=== PATIENT | female | born 1970 | race Caucasian/White ===

== ENCOUNTER 2016-10-28 17:40 | Emergency (ER) | payer SELFPAY ==
--- NOTE | 2016-10-29 01:41 | ED NURSING NOTES ---
Clinical Report - Nurses [facility] [address] [place] [address] 10/28/2016 17:41 Patient: CARMEN AMES TRIAGE Triage time 17:50. Chief Complaint: DEPRESSION, SUICIDAL THOUGHTS, ANXIETY and BIZARRE BEHAVIOR and AGITATED and AGGRESSIVE BEHAVIOR. --17:52 Emily Norris R.N. 18:30 10/28/16. BP: 131/77. HR: 94. RR: 20. O2 saturation: 98%. Temp: 97.8 F. Pain level now: 0. --18:31 Emily Norris R.N. Weight: 70.3 kg estimated. Height/Length: 67 inches Estimated. BMI: 24.3. --18:40 Emily Norris R.N. Medications Ibuprofen Oral, as needed. --17:51 Emily Norris R.N. Allergies PCN. Definite Moderate (Convulsions) --17:51 Emily Norris R.N. History Arrived in police custody. --17:52 Emily Norris R.N. ( Pt brought in in 4 point locking restraints which were resumed in the ED on arrival.). --17:57 Emily Norris R.N. SELF HARM ASSESSMENT: A self harm assessment was performed. The patient answered "yes" to the question "Have you recently felt down, depressed, or hopeless?", "Do you have thoughts of harming or killing yourself?" and "Have you ever tried to hurt yourself before today?" and "no" to the question "Do you have any dangerous items in your possession?". Unable to assess the patient in regard to the question "Have you noticed less interest or pleasure in doing things?", "Are you here because you tried to hurt yourself?" and "Have you recently had thoughts about harming or killing others?". The patient reports their behavior and spouse reported the patient's behavior. --18:41 Emily Norris R.N. PROBLEMS: Alcohol Intoxication. Mental Illness. Pelvic Pain. Ovarian Cyst. Enteritis. Abdominal Pain. Diarrhea. Endometriosis. Rt groin hernia. Hernia of abdominal wall. --17:52 Emily Norris R.N. ADDITIONAL SURGERIES: Cholecystectomy. Uterine ablation. --17:52 Emily Norris R.N. Hysterectomy. --18:40 Emily Norris R.N. PHYSICAL ASSESSMENT 18:32 10/28/16. GENERAL / NEURO / PSYCH: Good eye contact. She describes suicidal thoughts. Patient appears agitated. Patient smells of alcohol. --18:32 Emily Norris R.N. NURSING PROGRESS NOTES 18:07 10/28/16. Reassurance given. Suicide precautions initiated. Patient identifiers checked. Bed placed in lowest position. Patient ready for evaluation. ( NATURALIZATION EXAMINER already has seen pt for initial assessment). --18:07 Emily Norris R.N. 18:30. Patient ID band checked for patient name and birthdate. Catheterized urine collected with return of yellow-colored clear urine; sample sent to lab for urinalysis, culture, drug screen and HCG. Specimen labeled in the presence of the patient. --19:04 Stefan Ireland R.N. 18:40. ( personnel and payroll technician assisted to draw blood samples, taken to lab by tech.). --19:04 Stefan Ireland R.N. ( Patient's right wrist restraint removed. Patient demonstrates that she is able to calm and follow direction. at the bedside.). --19:48 Aaron Pryor R.N. ( Ariana THAKUR put the pt on a bedpan and removed the pt off the bedpan. outside the door.). --19:59 Beltran Nesbitt R.N. 20:05 10/28/16. ( First contact with pt . Pt placed on bedpan 400cc urine out. UA sent to lab . dry chucks placed under pt). --20:05 Ariana Henriquez R.N. ( Pt was complaining that the right wrist restraint was too tight and was loosened.). --21:29 Beltran Nesbitt R.N. ( PATIENT FAMILY COMPLAINED OF RESTRAINT BEING TO TIGHT, I CHECKED, PATIENT HAD GOOD CMS, AND i WAS ABLE TO FIT A FINGER BETWEEN THE RESTRAINTS AND THE PATIENTS WRIST, I ADVISED FAMILY THAT THE RESTRAINTS WERE APPROPRIATE, ESPECIALLY SHE HAD SLIPPED A RESTRAINT PREVIOUSLY). --21:33 Husam Tovar, ER Siebel Solution Architect ( Pt was placed on a bedpan by Ariana THAKUR). --21:50 Beltran Nesbitt R.N. 21:50. ( placed on bedpan 450cc urine out). --21:53 Ariana Henriquez R.N. ( Pt is laying in bed. left to go home and asked to be called if something happened. Pt still has both lower restraints on and have been checked. Pt has wrist restraints off.). --22:47 Beltran Nesbitt R.N. ( Pt is laying in bed with eyes closed with leg restraints on. Pt has non labored breathing.). --00:11 Beltran Nesbitt R.N. ( Pt was feeling nauseated and the MD was informed. Pt is calm and alert in bed.). --00:56 Beltran Nesbitt R.N. ( MD is at bedside talking to the pt. Pt is calm and alert.). --01:38 Beltran Nesbitt R.N. ( The leg restraints were removed, per MD orders. Pt was given a phone to call her .). --01:44 Beltran Nesbitt R.N. 01:34 10/29/2016 Zofran ODT (Ondansetron) PO 4 mg given. Allergies verified and confirmed 5 rights. --01:59 Beltran Nesbitt R.N. 02:04 10/29/2016 Phenergan (Promethazine HCl) IM 12.5 mg given. Given in the right deltoid. Allergies verified, confirmed 5 rights and sedative warning given to the patient and patient's family. --02:04 Beltran Nesbitt R.N. DISPOSITION / DISCHARGE Condition at departure: improved. ( Pt did not want to get her vs taken at the time of D/C. Pt was awake and alert x 4. was at bedside. Pt was told to stay 10 mins due to the pt given a shot. Pt was calm, but got agitated that her could not get a MD note.). No learning barriers present. Discharge instructions provided and reviewed with the patient and spouse. Patient verbalized understanding. Written instructions provided in Syriac. The patient was discharged by the physician. She was discharged home and accompanied by spouse. She left the Emergency Department ambulatory and via private vehicle. Spouse driving. --02:07 Beltran Nesbitt R.N. Locked/Released at 10/29/2016 2:15 by Beltran Nesbitt R.N.
--- NOTE | 2016-10-29 01:41 | ED ORDER SUMMARY ---
..... Patient: CARMEN AMES OrderSheet [facility] VisitID: [id number] [place] [address] 45y, F Registration Date/Time: 10/28/2016 ORDER SHEET Weight: 70.3 kg (estimated) Allergies: PCN GENERAL ORDERS: CBC w Diff Urgent (17:55 10/28/2016 HBivens A.R.N.P.) (Ack 18:10 TBergley) (18:28 TBergley) BMP Urgent (17:55 10/28/2016 HBivens A.R.N.P.) (Ack 18:10 TBergley) (18:28 TBergley) UA-Culture if indicated Urgent (17:55 10/28/2016 HBivens A.R.N.P.) (Ack 18:10 TBergley) (18:28 TBergley) Urine Drug Screen Urgent (17:55 10/28/2016 HBivens A.R.N.P.) (Ack 18:10 TBergley) (18:28 TBergley) Ethyl Alcohol Urgent (17:55 10/28/2016 HBivens A.R.N.P.) (Ack 18:10 TBergley) (18:28 TBergley) Serum Qualitative Urgent (17:55 10/28/2016 HBivens A.R.N.P.) (Ack 18:10 TBergley) (18:28 TBergley) Salicylate Level Urgent (17:55 10/28/2016 HBivens A.R.N.P.) (Ack 18:10 TBergley) (18:28 TBergley) Acetaminophen Level Urgent (17:55 10/28/2016 HBivens A.R.N.P.) (Ack 18:10 TBergley) (18:28 TBergley) Urine Drug Screen Urgent (17:55 10/28/2016 HBivens A.R.N.P.) (Ack 18:10 TBergley) (18:28 TBergley) Ethyl Alcohol Urgent (21:32 10/28/2016 HBivens A.R.N.PSharmaine) (Ack 21:46 TBergley) (22:02 TBergley) MEDICATION ORDERS: Zofran ODT PO 4 mg (NOW) (01:39 10/29/2016 Rigoberto PARKER) (1:59 Alfredo R.N.) Phenergan IM 12.5 mg (HIGH ALERT MEDICATION, NOW) (01:40 10/29/2016 Rigoberto PARKER) (2:04 Alfredo Adames.N.) IV FLUIDS: ORDER SHEET NOTES: [Electronically signed by Beltran Nesbitt R.N. (02:15 10/29/2016)] [Electronically signed by Mary Ellen Ybarra MD (21:25 11/01/2016)] [Electronically locked/signed by Beltran Nesbitt R.N. (02:15 10/29/2016)]
--- NOTE | 2016-10-29 01:41 | ED ORDER SUMMARY ---
..... Patient: CARMEN AMES OrderSheet [facility] VisitID: [id number] [place] [address] 45y, F Registration Date/Time: 10/28/2016 ORDER SHEET Weight: 70.3 kg (estimated) Allergies: PCN GENERAL ORDERS: CBC w Diff Urgent (17:55 10/28/2016 HBivens A.R.N.P.) (Ack 18:10 TBergley) (18:28 TBergley) BMP Urgent (17:55 10/28/2016 HBivens A.R.N.P.) (Ack 18:10 TBergley) (18:28 TBergley) UA-Culture if indicated Urgent (17:55 10/28/2016 HBivens A.R.N.P.) (Ack 18:10 TBergley) (18:28 TBergley) Urine Drug Screen Urgent (17:55 10/28/2016 HBivens A.R.N.P.) (Ack 18:10 TBergley) (18:28 TBergley) Ethyl Alcohol Urgent (17:55 10/28/2016 HBivens A.R.N.P.) (Ack 18:10 TBergley) (18:28 TBergley) Serum Qualitative Urgent (17:55 10/28/2016 HBivens A.R.N.P.) (Ack 18:10 TBergley) (18:28 TBergley) Salicylate Level Urgent (17:55 10/28/2016 HBivens A.R.N.P.) (Ack 18:10 TBergley) (18:28 TBergley) Acetaminophen Level Urgent (17:55 10/28/2016 HBivens A.R.N.P.) (Ack 18:10 TBergley) (18:28 TBergley) Urine Drug Screen Urgent (17:55 10/28/2016 HBivens A.R.N.P.) (Ack 18:10 TBergley) (18:28 TBergley) Ethyl Alcohol Urgent (21:32 10/28/2016 HBivens A.R.N.PSharmaine) (Ack 21:46 TBergley) (22:02 TBergley) MEDICATION ORDERS: Zofran ODT PO 4 mg (NOW) (01:39 10/29/2016 Rigoberto PARKER) (1:59 Alfredo R.N.) Phenergan IM 12.5 mg (HIGH ALERT MEDICATION, NOW) (01:40 10/29/2016 Rigoberto PARKER) (2:04 Alfredo Adames.N.) IV FLUIDS: ORDER SHEET NOTES: [Electronically signed by Beltran Nesbitt R.N. (02:15 10/29/2016)] [Electronically signed by Mary Ellen Ybarra MD (21:25 11/01/2016)] [Electronically locked/signed by Beltran Nesbitt R.N. (02:15 10/29/2016)]
--- NOTE | 2016-10-29 01:41 | ED CLINICAL REPORT ---
Clinical Report - Physicians/Mid Levels Located Within [facility] [address] [place] [address] 10/28/2016 17:41 Patient: CARMEN AMES Time Seen: 19:46; initial patient contact, initial documentation, patient care assumed. Arrived- By ambulance. Police present. Not in custody. Historian- patient and EMS personnel. History limited by poor cooperation. HISTORY OF PRESENT ILLNESS Chief Complaint: ANXIOUS, DEPRESSED and SUICIDAL THOUGHTS, (Intoxicated) and AGITATED, ANGRY, AGGRESSIVE and VIOLENT BEHAVIOR. This started unknown. The patient has experienced situational problems related to spouse (spouse has brain tumor). Recent alcohol consumption (Pt was drinking heavily tonight, and stated, "I just want to get a gun and end it".). The patient has had anxiety. Has been depressed and angry, exhibited unusual behavior and had suicidal thoughts. The symptoms are described as severe. No injury is present. Similar symptoms previously: Diagnosis: depression, suicide attempt and situational problems. Recent medical care: Not recently seen/assessed. REVIEW OF SYSTEMS No headache, dizziness, weakness, chest pain or palpitations. No abdominal pain, vomiting, diarrhea, black stools or numbness. No fever, sore throat, cough, difficulty breathing or urinary frequency. No skin rash, enlarged lymph nodes, joint pain, weight loss or laceration. All systems otherwise negative, except as recorded above. PAST HISTORY See nurses notes. ( PROBLEMS: Alcohol Intoxication. Mental Illness. Pelvic Pain. Ovarian Cyst. Enteritis. Abdominal Pain. Diarrhea. Endometriosis. Rt groin hernia. Hernia of abdominal wall. --17:52 Emily Norris, R.N. ADDITIONAL SURGERIES: Cholecystectomy. Uterine ablation. --17:52 Emily Norris, R.N. Hysterectomy. --18:40 Emily Norris, R.N.). Problems: Alcohol Intoxication. Mental Illness. Ovarian Cyst. Enteritis. Diarrhea. LNMP - Last Normal Menstrual Period. Endometriosis. Rt groin hernia. Hernia of abdominal wall. Additional Surgeries: Cholecystectomy. Hysterectomy. Uterine ablation. Medications: Ibuprofen Oral, as needed. Allergies: PCN. Definite Moderate (Convulsions). SOCIAL HISTORY Light tobacco smoker. Occasional alcohol use. History of drug use unknown. Has social support. Has place to stay. FAMILY HISTORY Negative. ADDITIONAL NOTES The nursing notes have been reviewed with agreement regarding the chief complaint, HPI, ROS, PMH and patient medications and allergies. PHYSICAL EXAM Vital Signs: 10/28/2016 18:30 BP: 131/77. HR: 94. RR: 20. O2 saturation: 98%. Temp: 97.8 F. Pain level now: 0/10. Have been reviewed as normal and appear to be correct. Appearance: Alert. No acute distress. Appearance is normal. Patient is uncooperative. Anxious. (pt screaming, kicking, yelling 'fuck you bitch' multiple times at me and nurse, screaming she just didn't care anymore, wants to , give her a gun and she will do it, and screaming that we let her go, so she can go and do it and everyone would be better off if she was gone). Eyes: Pupils equal, round and reactive to light. Neck: Normal inspection. Neck supple. CVS: Normal heart rate and rhythm. Heart sounds normal. Respiratory: Breath sounds normal. Chest nontender. Abdomen: Soft and nontender. Back: No tenderness. Skin: Skin warm and dry. Normal skin color. Normal skin turgor. Extremities: Extremities exhibit normal ROM. No lower extremity edema. Psych / Neuro: Oriented X 3. Speech normal. Cognition normal. Thought process and content normal. She expresses suicidal thoughts and a specific plan. Insight and judgement not normal. She does not feel treatment is necessary. She seems unconcerned about hers current condition. Cranial nerves normal (as tested). No motor deficit. No sensory deficit. LABS, X-RAYS, AND EKG Laboratory Tests: UA-Culture if indicated: (JORGE LUIS: 10/28/2016 18:05) ( MsgRcvd 10/28/2016 19:18) Final results Test Result Flag Units (Reference) URINE COLOR STRAW URINE APPEARANCE CLEAR URINE GLUCOSE NEGATIVE (NEGATIVE) URINE BILIRUBIN NEGATIVE (NEGATIVE) URINE KETONE NEGATIVE (NEGATIVE) URINE SPECIFIC GRAVITY <= 1.005 L (1.010-1.030) URINE PH 5.5 (5.0-8.0) URINE PROTEIN NEGATIVE (NEGATIVE) URINE UROBILINOGEN 0.2 EU/dL (0.2-1.0) URINE NITRITE NEGATIVE (NEGATIVE) URINE BLOOD NEGATIVE (NEGATIVE) URINE LEUK ESTERASE NEGATIVE (NEGATIVE) URINE RBC NONE SEEN rbc/hpf (0-1) URINE WBC NONE SEEN wbc/hpf (0-1) URINE EPITHELIAL CELLS 0-1 EPI/hpf (0-5) URINE BACTERIA NONE SEEN (NONE SEEN) URINE COMMENT CULT NOT INDICATED URINE CULTURES ARE SET-UP BASED ON THE FOLLOWING CRITERIA:POSITIVE NITRITEPOSITIVE LEUKOCYTE ESTERASEGREATER THAN 10 WHITE BLOOD CELLSMODERATE (2+) OR GREATER BACTERIA Serum Qualitative: (JORGE LUIS: 10/28/2016 18:25) ( [facility] 10/28/2016 18:54) Final results Test Result Flag Units (Reference) , SERUM NEGATIVE CBC w Diff: (JORGE LUIS: 10/28/2016 18:25) ( [facility] 10/28/2016 18:50) Final results Test Result Flag Units (Reference) WHITE BLOOD COUNT 8.3 K/uL (4.5-11.5) RED BLOOD COUNT 4.87 M/uL (4.00-5.20) HEMOGLOBIN 14.7 gm/dL (12.0-16.0) HEMATOCRIT 45.3 % (36.0-46.0) MEAN CELL VOLUME 93 fL (80-100) MEAN CORPUSCULAR HGB 30 pg (26-34) MEAN CORPUSCULAR HGB CONC 33 g/dL (31-37) RED CELL DISTRIBUTION WIDTH 13.0 % (11.6-14.8) PLATELET COUNT 283 K/uL (150-400) NEUTROPHIL % 67.2 % (50-75) LYMPH % 23.9 L % (25-40) MONO % 7.9 % (3-14) EOSINOPHIL % 0.5 % (0-4) BASOPHIL % 0.5 % (0-2) Urine Drug Screen: (JORGE LUIS: 10/28/2016 18:05) ( [facility] 10/28/2016 18:42) Final results Test Result Flag Units (Reference) AMPHETAMINE/METHAMPHETAMINE NEGATIVE (NEGATIVE) BARBITURATE NEGATIVE (NEGATIVE) BENZODIAZEPINE NEGATIVE (NEGATIVE) CANNABINOID NEGATIVE (NEGATIVE) COCAINE NEGATIVE (NEGATIVE) ECSTASY NEGATIVE (NEGATIVE) METHADONE NEGATIVE (NEGATIVE) OPIATE NEGATIVE (NEGATIVE) The urine drug screen is a qualitative screening test fordrug overdose and abuse. All screen results should beconsidered as presumptive.Drugs screened for are as follows:BenzodiazepinesCocaineAmphetamines/MetamphetaminesTHC (Tetrahydrocannabinol)OpiatesBarbituratesEcstasyMethadonePositive results are unconfirmed. For confirmation, notifythe lab for the specimen to be sent to the reference lab.All confirmations must be performed by a differentmethodology.The ingestion of natural herbal and plant productscontaining Ephedra/Ephedra metabolites can produce in urineone or more substances capable of cross reacting withamphetamine/methamphetamine immunoassays. These testsprovide a preliminary result only. A more specificalternative chemical method must be used to obtain aconfirmed analytical result. Salicylate Level: (JORGE LUIS: 10/28/2016 18:25) ( MsgRcvd 10/28/2016 18:59) Final results Test Result Flag Units (Reference) SALICYLATE <2.8 L mg/dL (2.8-20) BMP: (JORGE LUIS: 10/28/2016 18:25) ( MsgRcvd 10/28/2016 18:59) Final results Test Result Flag Units (Reference) GLUCOSE 75 mg/dL (70-110) BUN 9 mg/dL (7-18) CREATININE 0.7 mg/dL (0.6-1.3) Estimated GFR >60 mL/min Estimated GFR- >60 mL/min Note: Persistent reduction over 3 months in eGFR<60 mL/min/1.73 m2 defines CKD. Patients with eGFR values>=60 mL/min/1.73 m2 may also have CKD if evidence ofpersistent proteinuria. Additional information may be foundat www.kidney.org. SODIUM 144 mmol/L (136-145) POTASSIUM 3.3 L mmol/L (3.5-5.1) CHLORIDE 109 H mmol/L (98-107) CARBON DIOXIDE 21 mmol/L (21-32) CALCIUM 9.0 mg/dL (8.5-10.1) ACETAMINOPHEN < 2.0 L ug/mL (10-30) ETHYL ALCOHOL 217 H mg/dL (3-10) . Pulse Oximetry: 10/28/2016 18:30 O2 saturation: 98%. (FIO2 - room air). Interpretation: normal. PROGRESS AND PROCEDURES Course of Care: 2200. pt asleep or either laying there resting quietly and peacefully 23:13 10/28/16. repeat etoh 159 Dr. Ybarra aware of pt and will be assuming care Tate note: Pt was observed in the ED until sober. She was occasionally agitated after I assumed care, but mostly calm, and when she did reach sobriety, she was very calm and cooperative. I did re-evaluate her, and she stated she was not suicidal, and did not remember making such statements. was willing to come and get the pt. Patient and spouse counseled in person regarding the patient's stable condition, test results, diagnosis and need for follow-up. Concerns were addressed. Old medical records reviewed. Differential Diagnosis: Other possible considerations: si, depression, self harm, bipolar, substance abuse. Above considerations are based on history, physical exam and laboratory data. Differential diagnosis was discussed with patient. Disposition: Discharged. Condition: stable and improved. CLINICAL IMPRESSION Suicidal ideation. 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 Alcohol intoxication with delirium. No alcohol intoxication with alcohol dependence. INSTRUCTIONS Warnings: GENERAL WARNINGS: Return or contact your physician immediately if your condition worsens or changes unexpectedly, if not improving as expected, or if other problems arise. Your Current Medications: CONTINUE TAKING THE FOLLOWING MEDICATIONS: Ibuprofen Oral : prn. Follow-up: Follow up with your doctor as needed. Understanding of the discharge instructions verbalized by patient. (Electronically signed by Mary Ellen Ybarra MD 11/01/2016 21:25) Salomón gregorio CARMEN AMES VisitID: [id number] Date: 10/28/2016 10/29/2016 8:57 at 1830, yesterday, error in charting done under Stefan Ireland's name, I actually cathed patient for a sterile urine sample, and then placed pt on bedpan, she voided, jina care given, and pajama pants repositioned for comfort. (Electronically signed by Emily Norris R.N. - 10/29/2016 8:57)
--- NOTE | 2016-11-01 21:25 | ED DISCHARGE INSTRUCTIONS ---
Patient: CARMEN AMES General Instructions [facility] VisitID: [id number] [address] [place] [address] 45y, F Registration Date/Time: 10/28/2016 Suicidal ideation. 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 Alcohol intoxication with delirium. No alcohol intoxication with alcohol dependence. INSTRUCTIONS Warnings: GENERAL WARNINGS: Return or contact your physician immediately if your condition worsens or changes unexpectedly, if not improving as expected, or if other problems arise. Your Current Medications: CONTINUE TAKING THE FOLLOWING MEDICATIONS: Ibuprofen Oral : prn. Follow-up: Follow up with your doctor as needed. Understanding of the discharge instructions verbalized by patient. (Electronically signed by Mary Ellen Ybarra MD 11/01/2016 21:25)
--- NOTE | 2016-11-01 21:25 | ED MAR SUMMARY ---
..... Medication Administration Record [facility] [address] [place] [address] Patient: CARMEN AMES Visit ID: [id number] 45y, F Weight: 70.3 kg Height/Length: 67 in BMI: 24.3 ALLERGIES: PCN Given 01:34 10/29/2016 Beltran Nesbitt R.N. Medication Administered: ZOFRAN ODT [PO] (ONDANSETRON), Dose: 4 mg PO. Medication Ordered: Zofran ODT PO 4 mg (NOW). Given 02:04 10/29/2016 Beltran Nesbitt R.N. Medication Administered: PHENERGAN [IM] (PROMETHAZINE HCL), Dose: 12.5 mg IM. Medication Ordered: Phenergan IM 12.5 mg (HIGH ALERT MEDICATION, NOW).
--- NOTE | 2016-11-01 21:25 | ED MAR SUMMARY ---
..... Medication Administration Record [facility] [address] [place] [address] Patient: CARMEN AMES Visit ID: [id number] 45y, F Weight: 70.3 kg Height/Length: 67 in BMI: 24.3 ALLERGIES: PCN Given 01:34 10/29/2016 Beltran Nesbitt R.N. Medication Administered: ZOFRAN ODT [PO] (ONDANSETRON), Dose: 4 mg PO. Medication Ordered: Zofran ODT PO 4 mg (NOW). Given 02:04 10/29/2016 Beltran Nesbitt R.N. Medication Administered: PHENERGAN [IM] (PROMETHAZINE HCL), Dose: 12.5 mg IM. Medication Ordered: Phenergan IM 12.5 mg (HIGH ALERT MEDICATION, NOW).
--- NOTE | 2016-11-01 21:25 | ED MED RECONCILIATION SUMMARY ---
Patient: CARMEN AMES Medication Reconciliation Report [facility] VisitID: [id number] [address] [place] [address] 45y, F Registration Date/Time: 10/28/2016 Weight: 70.3 kg Height/Length: 67 in. BMI: 24.3 ALLERGIES: PCN The patient's Home Medications are listed below: CONTINUE TAKING THE FOLLOWING MEDICATIONS: Ibuprofen Oral The source(s) of the original Home Medication information: Not obtained. The following Medications were given to the patient in the Emergency Department: Zofran ODT [PO] PO 4 mg, administered: 10/29/2016 1:34:00 AM Phenergan [IM] IM 12.5 mg, administered: 10/29/2016 2:04:00 AM The following Medications were prescribed to the patient: None.
--- NOTE | 2016-11-01 21:25 | ED DISCHARGE INSTRUCTIONS ---
Patient: CARMEN AMES General Instructions [facility] VisitID: [id number] [address] [place] [address] 45y, F Registration Date/Time: 10/28/2016 Suicidal ideation. 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 Alcohol intoxication with delirium. No alcohol intoxication with alcohol dependence. INSTRUCTIONS Warnings: GENERAL WARNINGS: Return or contact your physician immediately if your condition worsens or changes unexpectedly, if not improving as expected, or if other problems arise. Your Current Medications: CONTINUE TAKING THE FOLLOWING MEDICATIONS: Ibuprofen Oral : prn. Follow-up: Follow up with your doctor as needed. Understanding of the discharge instructions verbalized by patient. (Electronically signed by Mary Ellen Ybarra MD 11/01/2016 21:25)
--- NOTE | 2016-11-01 21:25 | ED MED RECONCILIATION SUMMARY ---
Patient: CARMEN AMES Medication Reconciliation Report [facility] VisitID: [id number] [address] [place] [address] 45y, F Registration Date/Time: 10/28/2016 Weight: 70.3 kg Height/Length: 67 in. BMI: 24.3 ALLERGIES: PCN The patient's Home Medications are listed below: CONTINUE TAKING THE FOLLOWING MEDICATIONS: Ibuprofen Oral The source(s) of the original Home Medication information: Not obtained. The following Medications were given to the patient in the Emergency Department: Zofran ODT [PO] PO 4 mg, administered: 10/29/2016 1:34:00 AM Phenergan [IM] IM 12.5 mg, administered: 10/29/2016 2:04:00 AM The following Medications were prescribed to the patient: None.
== END 2016-10-29 02:00 | disposition home or self-care (01) ==
LOC: ED SRH 17:40
DX: R45.851 Suicidal ideations (principal); F33.9 Major depressive disorder, recurrent, unspecified; F10.121 Alcohol abuse with intoxication delirium; Z88.0 Allergy status to penicillin
CPT/HCPCS: 81460; 90004; 90047; 90074; 92010; 92760; 92761; 92762; 92763; 92764; 92765; 92766; 92767; 92780; 93070; 95059; 97000; 98428

== ENCOUNTER 2017-02-27 08:51 | Outpatient (CLI) | payer OTHER ==
--- NOTE | 2017-02-27 13:31 | DIAGNOSTIC IMAGING REPORT ---
PROCEDURE: NM BONE/JOINT THREE PHASE INDICATION: Left shoulder and upper extremity pain. Possible complex regional pain syndrome (reflux evident dystrophy). TECHNIQUE: 27 mCi a technetium 99m MDP were injected intravenously. Blood flow, blood pool, and three hour delayed static images were obtained of the thorax, shoulders, and proximal upper extremities. COMPARISON: None. FINDINGS: Blood flow and blood pool images are normal. Delayed static images of the shoulders, thorax, and proximal arms are normal. IMPRESSION: 1. Normal nuclear medicine bone scan of the thorax shoulders, and proximal upper extremities.
== END 2017-02-27 23:00 ==
LOC: NM SRH 08:51
DX: M25.512 Pain in left shoulder (principal)